=== PATIENT | male | born 1980 | race Caucasian/White ===

== ENCOUNTER 2019-07-02 07:02 | Day surgery (SDC) | payer OTHER ==
[2019-07-01 12:31] VITALS: BMI 31.4
[2019-07-02] MEDS ORDERED: DEXAMETHASONE SOD PHOSPHATE/PF 10 MG/ML SDV ONE (08:36)
[2019-07-02] MEDS ORDERED: ROPIVACAINE HCL 0.5% 30ML VIAL ONE (08:36)
[2019-07-02] MEDS ORDERED: MIDAZOLAM HCL 2 MG/2 ML SINGLE DOSE VIAL ONE ×2 (08:37)
[2019-07-02] MEDS ORDERED: PROPOFOL 20 ML ONE (08:46)
--- NOTE | 2019-07-02 09:26 | HP ---
Satellite [facility] - Chief Complaint Chief Complaint: right shoulder pain - Past Medical History Allergies/Adverse Reactions: Allergies Allergy/AdvReac Type Severity Reaction Status Date / Time No Known Drug Allergies Allergy Verified 07/02/19 07:31 - Current Medications Current Medications: Home Medications Medication Instructions Recorded Hydrocodone/Acetaminophen 1 each PO Q6H #30 tablet MDD 4 07/02/19 [Hydrocodone-Acetamin 5-325 mg] Satellite Physical Exam - Physical Examination Vital Signs: Vital Signs Period Temp Pulse Resp BP Sys/Kowalski Pulse Ox Last 24 Hr 98.0 F 74 16 135/77 99 General Appearance: Well Nourished, Well Developed, Alert & Oriented x3 ENT: Clear Lung: Normal air movement Extremities: Other (right shoulder- + ttp ,decr rom, + neer, + rogers, +/- empty can, nvi) Neurological: Intact, Alert, Oriented Satellite Impression/Plan - Impression/Plan Impression: right shoulder rct, impingement Operative Procedure: right shoulder arthroscopy with SAD and possible RCR Date to be Performed: 07/02/19
[2019-07-02] MEDS ORDERED: ceFAZolin SODIUM 1 GM VIAL ONE (09:56)
[2019-07-02] MEDS ORDERED: DEXAMETHASONE SOD PHOSPHATE 4 MG/1 ML VIAL ONE (09:56)
[2019-07-02] MEDS ORDERED: ONDANSETRON 4 MG/2 ML VIAL ONE (09:56)
[2019-07-02] MEDS ORDERED: ceFAZolin SODIUM 1 GM VIAL IVPB ONE (09:58)
[2019-07-02] MEDS ORDERED: oxyCODONE HCL 5 MG TABLET PO PRN (10:29)
[2019-07-02] MEDS ORDERED: ONDANSETRON 4 MG/2 ML VIAL IVPUSH PRN (10:29)
[2019-07-02] MEDS ORDERED: LACTATED RINGERS SOLUTION 1,000 ML IV SCH (10:30)
--- NOTE | 2019-07-02 10:46 | OP ---
<Pee Lutz - Last Filed: 07/02/19 10:44> Operative Note - Note: Operative Date: 07/02/19 ([facility]) Pre-Operative Diagnosis: right shoulder impingement, rct Operation: right shoulder arthroscopy with SAD, RANDELL Post-Operative Diagnosis: Same as Pre-op Surgeon: Yuri Mason [employer] Workers: Pee Lutz Anesthesiologist/DEBRANDER: Juana Still Anesthesia: General, Local Specimens Removed: shavings Estimated Blood Loss (mls): 5 <Yuri Mason - Last Filed: 07/02/19 11:18> Operative Note - Note: Operation: right shoulder arthroscopy, subacromial decompression, distal clavicle excision
--- NOTE | 2019-07-02 11:40 | OP ---
DATE OF OPERATION: 07/02/2019 PREOPERATIVE DIAGNOSIS: Right shoulder impingement syndrome and partial rotator cuff tear. POSTOPERATIVE DIAGNOSIS: Right shoulder impingement syndrome and partial rotator cuff tear. PROCEDURES PERFORMED: Right shoulder arthroscopy, subacromial decompression and distal clavicle excision. SURGEON: Priyank Moraes M.D. EVENT PROMOTIONS COORDINATOR: PAUL Valdivia ANESTHESIOLOGIST: Juana Still CRNA ANESTHESIA: Right interscalene block with LM anesthesia. DRAINS: None. COMPLICATIONS: None. SPECIMENS: Arthroscopic shavings. BLOOD LOSS: Minimal. BLOOD GIVEN: None. FLUID REPLACEMENT: PlasmaLyte 1000 mL. INDICATIONS: This patient is a 38-year-old male with the preoperative diagnosis of right shoulder pain, impingement syndrome, AC joint bursitis, and a partial rotator cuff tear. After understanding the potential risks, complications, alternatives and benefits of surgery versus nonsurgical treatment, the patient elected to undergo this procedure. DESCRIPTION PROCEDURE: The patient was brought to the operating room. A peripheral IV placed, and IV sedation given. He was given 2 g of IV Ancef 2 g. A right interscalene block was performed. He was placed into the beach-chair position with ample padding throughout, after LM anesthesia was induced. The right upper extremity was prepped and draped in a sterile fashion. The bony landmarks were marked out with a marking pen. A posterior portal was established. A diagnostic glenohumeral arthroscopy was performed. Inside the joint, things looked good. There was no glenohumeral osteoarthritis. The anterior labrum was a little frayed but not disattached and did not need to be repaired. The undersurface of the rotator cuff was pristine. The biceps tendon looked good. There was no synovitis. The area was copiously irrigated and washed out, and all saline removed. Next, our attention was turned to the subacromial space. A lateral portal was established with a spinal needle under direct visualization. A number 15 scalpel blade and a green cannula were introduced into the subacromial space. The patient had a tremendous amount of inflammatory bursitis. An extensive soft tissue bursectomy was done/extensive soft tissue debridement. This revealed the top surface of the rotator cuff, which looked good. There was no tear. The arm was put through a full range of motion. There were several points of significant impingement around the anterior-inferior bony acromial spur, but there was no tear. The patient had a huge subacromial spur and a very large distal clavicular spur as well. Both of these were taken down with a 5.5-mm oval bur, first in forward and then in reverse to fine-tune it, then with a straight shaver. The area was copiously irrigated and washed out. All excess saline and bony debris were removed. The arm was then put through a range of motion. Again, there was plenty of room. There were no points of impingement. There was no rotator cuff tear, and the AC joint and distal clavicle looked much better. The instrumentation was removed. All excess saline was removed. The arthroscopy portals were closed with 3-0 nylon sutures. The area was then washed and tried, covered with Aquacel dressing. He was put into a sling, extubated and brought to the recovery room. There were no complications during the case. The patient tolerated the procedure quite well. Total operative time was about 40 minutes. PRIYANK MORAES M.D. [id number]
[2019-07-02 13:03] VITALS: BP 133/63; PULSE 76; TEMP 97.7
--- NOTE | 2019-07-03 17:51 | PATH ---
Surgical Pathology Report Patient Name: MARGARITO FISCHER Med. Rec. #: [id number] /Age/Gender: 1980 (Age: 38) / M Account: [id number] Location: [facility] SURGICAL Taken: 07/02/2019 Received: 07/02/2019 Reported: 07/03/2019 Physicians: Yuri Mason M.D. Specimen(s) Received SHOULDER SHAVINGS, RIGHT Clinical History Right shoulder tear Final Diagnosis SHOULDER SHAVINGS, RIGHT, ARTHROSCOPY: FRAGMENTS OF BENIGN CARTILAGE, BONE, DENSE FIBROCONNECTIVE TISSUE, ADIPOSE TISSUE, AND SKELETAL MUSCLE. Electronically Signed Bernadette Levin M.D. Gross Description Received in formalin, labeled "right shoulder shavings," is a 4.3 x 3.5 x 0.6 cm. aggregate of loredo-yellow soft tissue fragments. A commissary representative portion is submitted in one cassette. /07/02/2019 [facility]07/02/2019
== END 2019-07-02 13:15 | disposition home or self-care (01) ==
LOC: JASU-SURG 07:02
PROVIDERS: ATTEND Orthopaedic Surgery
PROC: 0RNJ4ZZ Release Right Shoulder Joint, Percutaneous Endoscopic Approach (ICD-10-PCS; principal; 2019-07-02 09:00)
DX: M75.41 Impingement syndrome of right shoulder (principal); M75.101 Unspecified rotator cuff tear or rupture of right shoulder, not specified as traumatic
CPT/HCPCS: 94760

== ENCOUNTER 2019-12-01 07:10 | Day surgery (SDC) | payer OTHER ==
[2019-11-27 16:09] VITALS: BMI 31.4
--- NOTE | 2019-11-28 11:53 | HP ---
Satellite [facility] - Chief Complaint Chief Complaint: right shoulder pain - Past Medical History Allergies/Adverse Reactions: Allergies Allergy/AdvReac Type Severity Reaction Status Date / Time No Known Drug Allergies Allergy Verified 11/27/19 16:09 - Current Medications Current Medications: Home Medications Medication Instructions Recorded NK [No Known Home Medication] 11/27/19 [facility] Physical Exam - Physical Examination General Appearance: Well Nourished, Well Developed, Alert & Oriented x3 ENT: Clear Lung: Normal air movement Extremities: Other (right shoulder- + ttp, decr rom, + neer, + rogers, + empty can, nvi) Neurological: Intact, Alert, Oriented Satellite Impression/Plan - Impression/Plan Impression: right shoulder rct Operative Procedure: right shoulder arthroscopy with RUBEN RCR Date to be Performed: 12/01/19
[2019-12-01] MEDS ORDERED: ROPIVACAINE HCL 0.5% 30ML VIAL ONE (07:58)
[2019-12-01] MEDS ORDERED: MIDAZOLAM HCL 2 MG/2 ML SINGLE DOSE VIAL ONE ×2 (07:59)
[2019-12-01] MEDS ORDERED: PROPOFOL 20 ML ONE ×2 (07:59→09:08)
[2019-12-01] MEDS ORDERED: ROCURONIUM BROMIDE 50 MG/5 ML SYRINGE ONE (08:00)
[2019-12-01] MEDS ORDERED: SUCCINYLCHOLINE CHLORIDE 200 MG/10 ML SYRINGE ONE (08:00)
[2019-12-01 08:24] LABS: EPI CELLS 3 /uL (0-25.1); HYALINE CASTS 2 /uL (0-3.1); PH,URINE 5.5 (5.0-8.0); URINE APPEARANCE CLEAR; URINE BACTERIA 7 /uL (0-1359); URINE BILIRUBIN NEGATIVE (NEGATIVE); URINE COLOR YELLOW; URINE GLUCOSE (UA) NEGATIVE (NEGATIVE); URINE KETONE NEGATIVE (NEGATIVE); URINE LEUK ESTERASE NEGATIVE (NEGATIVE); URINE NITRITE NEGATIVE (NEGATIVE); URINE PROTEIN NEGATIVE (NEGATIVE); URINE RBC 10 /uL (0-23.9); URINE UROBILINOGEN 0.2 mg/dL (0.2-1.0); URINE WBC 4 /uL (0-25.8)
[2019-12-01] MEDS ORDERED: ceFAZolin SODIUM 1 GM VIAL IVPB ONE (08:46)
[2019-12-01] MEDS ORDERED: LIDOCAINE HCL/PF 2% SDV 5ML VIAL ONE (09:09)
[2019-12-01] MEDS ORDERED: KETOROLAC TROMETHAMINE 30 MG/1 ML VIAL ONE (09:09)
[2019-12-01] MEDS ORDERED: ceFAZolin SODIUM 1 GM VIAL ONE (09:09)
[2019-12-01] MEDS ORDERED: DEXAMETHASONE SOD PHOSPHATE 4 MG/1 ML VIAL ONE (09:09)
--- NOTE | 2019-12-01 09:30 | OP ---
Operative Note - Note: Operative Date: 12/01/19 Pre-Operative Diagnosis: right shoulder pain, ACJ OA Operation: right shoulder arthroscopy, AC joint resection Post-Operative Diagnosis: Same as Pre-op Surgeon: Yuri Mason Tutor Coordinator: Pee Lutz Anesthesiologist/DATA POWER CONSULTANT: Malorie Ta MD Anesthesia: General, Local Specimens Removed: shavings Estimated Blood Loss (mls): 10 Drains, Volume Out (mls): 0 Blood Volume Replaced (mls): 0 Fluid Volume Replaced (mls): 700 Operative Report Dictated: Yes
[2019-12-01] MEDS ORDERED: PROMETHAZINE HCL 25 MG/1 ML VIAL IVPUSH PRN (10:05)
[2019-12-01] MEDS ORDERED: oxyCODONE HCL 5 MG TABLET PO PRN (10:05)
[2019-12-01] MEDS ORDERED: ONDANSETRON 4 MG/2 ML VIAL IVPUSH PRN (10:05)
[2019-12-01] MEDS ORDERED: LACTATED RINGERS SOLUTION 1,000 ML IV SCH (10:15)
[2019-12-01 10:54] VITALS: TEMP 98.1
[2019-12-01 11:49] VITALS: BP 120/70; PULSE 70
--- NOTE | 2019-12-02 12:57 | PATH ---
Surgical Pathology Report Patient Name: MARGARITO FISCHER Med. Rec. #: [id number] /Age/Gender: 1980 (Age: 39) / M Account: [id number] Location: [facility] SURGICAL Taken: 12/01/2019 Received: 12/01/2019 Reported: 12/02/2019 Physicians: Yuri Mason M.D. Specimen(s) Received RIGHT SHOULDER SHAVINGS Clinical History Right shoulder impingement and AC joint arthritis Final Diagnosis SHOULDER, RIGHT, ARTHROSCOPIC SHAVINGS: FIBROSYNOVIAL TISSUE, BONE, CARTILAGE AND SKELETAL MUSCLE. Electronically Signed Hedy Kuo M.D. Gross Description Received in formalin, labeled "right shoulder shavings," is a 3.0 x 2.8 x 0.3 cm. aggregate of loredo-yellow soft tissue fragments. A open claims representative portion is submitted in one cassette. /12/01/2019 [facility]/12/01/2019
--- NOTE | 2019-12-02 16:15 | OP ---
DATE OF OPERATION: 12/01/2019 PREOPERATIVE DIAGNOSIS: Right shoulder recurrent pain, possible rotator cuff tear, possible acromioclavicular joint arthritis. PROCEDURE: Right shoulder arthroscopy and arthroscopic acromioclavicular joint resection. SURGEON: Yuri Mason MD EGG GATHERER: APUL Valdivia. ANESTHESIOLOGIST: Malorie Ta MD ANESTHESIA: Right interscalene block and LMA anesthesia. DRAINS: None. COMPLICATIONS: None. BLOOD LOSS: 15 mL. BLOOD GIVEN: None. FLUID REPLACEMENT: 700 mL of Plasmalyte. SPECIMENS: Arthroscopic shavings. DESCRIPTION OF PROCEDURE: Patient is a 39-year-old male with a preoperative diagnosis of recurrent pain in the right shoulder. He is status post right shoulder surgery. A recent preoperative MRI did suggest possible rotator cuff tear. After understanding the potential risks, complications, alternatives and benefits of surgery versus nonsurgical treatment, the patient elected to undergo this procedure. The patient was brought to the operating room, peripheral IV placed, IV sedation given. A right interscalene block was performed. The LMA anesthesia was induced. He was placed into the beach chair position with the elbow padded throughout. First, I put the right upper extremity and shoulder through manipulation under anesthesia. There was absolutely no block to motion. He had full, easy, fluid passive motion with no points of stiffness. The right upper extremity was prepped and draped in the sterile fashion. The bony landmarks were marked out with a marking pen. A posterior portal was established through the exact same location as the previous portal and diagnostic glenohumeral arthroscopy was performed. The glenohumeral joint looked pristine. The glenoid, humeral head, labrum, the biceps tendon, biceps anchor, and the entire undersurface of the rotator cuff looked perfect. There was no arthritis. No tears. No synovitis. No reactive inflammation. It all looked perfect. The gutters looked good. There were no loose bodies. The area was copiously irrigated and washed out. All instrumentation and excess saline were removed. Next, our attention was turned to the subacromial space. Lateral portal was established using the spinal needle. Again, using the exact same location as the previous portal, indicating the previous portal was in the correct location, a number 15-scalpel blade was used to open it a bit and a green cannula introduced into the subacromial space. Here, also everything looked pristine. The top surface of the rotator cuff looked perfect. The arm was put through a full range of motion and there were no tears, synovitis. A normal bursa was reformed. The undersurface of the acromion also looked perfect. It was smooth. Soft tissue had formed. There were no bone spurs. Just to make sure, a soft tissue bursectomy/debridement was done with the ArthroCare wand, revealing that the previous subacromial decompression looked good. There were no missed bone spurs. There were no irregularities in the undersurface of the acromion or the distal clavicle. The area was gently shaved to remove any soft tissue debris with the straight shaver. Photographs were taken. Overall I was quite happy with the way this previous subacromial decompression looked. The arm was put through full range of motion. The rotator cuff was directly visualized in all planes. There were no points of compression whatsoever. There were not even any points of synovitis or reactive inflammation. It all looked completely normal. Next, the AC joint was addressed. The distal clavicle looked good. The anterior portal was established with a spinal needle and then a number 11-scalpel blade. First the metal trocar was placed into the new anterior portal, documenting excellent angle up into the AC joints. Next, I cleared the soft tissue with an ArthroCare wand. It went easily. There were really no points of compression here either. That being said, first I used a shaver to remove the soft tissue debris to the width of the shaver within the AC joint and then used the 5.5-mm oval bur to do an AC joint resection. There were no points of compression or renal osteophytes that I could see. It did take away a small amount of bone, opening the AC joint to 5.5 mm. I then cleared it out with a shaver, cauterized with the ArthroCare wand, directly visualized the AC joint through full arm range of motion. There were no points of compression. The area was copiously irrigated and washed out, explored again. Nothing was seen. The instrumentation was removed. Excess saline was removed. The arthroscopy portal was closed with 3-0 nylon sutures. The area was then washed and dried, covered the incisions with Aquacel dressings and was put into a sling. He was extubated. Total operative time was 30 minutes. There were no complications during the case. The patient was brought to the ambulatory recovery room in stable condition. Arjun [id number]
== END 2019-12-01 11:45 | disposition home or self-care (01) ==
LOC: JASU-SURG 07:10
PROVIDERS: ATTEND Orthopaedic Surgery
PROC: 0PB94ZZ Excision of Right Clavicle, Percutaneous Endoscopic Approach (ICD-10-PCS; principal; 2019-12-01 09:00)
DX: M25.511 Pain in right shoulder (principal)
CPT/HCPCS: 81003; 88304-TC; 94760

== ENCOUNTER 2021-06-22 04:07 | Day surgery (SDC) | payer OTHER ==
[2021-06-17 14:33] VITALS: BMI 34.4
[2021-06-22] MEDS ORDERED: PROPOFOL 20 ML ONE (07:20)
[2021-06-22] MEDS ORDERED: DEXAMETHASONE SOD PHOSPHATE 10 MG/1 ML VIAL ONE (07:58)
[2021-06-22] MEDS ORDERED: BUPIVACAINE HCL/PF 0.5% (5MG/ML) 10 ML VIAL ONE (07:58)
[2021-06-22] MEDS ORDERED: MIDAZOLAM HCL 2 MG/2 ML SINGLE DOSE VIAL ONE ×2 (08:00)
[2021-06-22] MEDS ORDERED: ceFAZolin SODIUM 1 GM VIAL IVPB ONE (08:18)
[2021-06-22] MEDS ORDERED: ceFAZolin SODIUM 1 GM VIAL ONE (08:27)
[2021-06-22] MEDS ORDERED: KETOROLAC TROMETHAMINE 30 MG/1 ML VIAL ONE (09:25)
[2021-06-22] MEDS ORDERED: oxyCODONE HCL 5 MG TABLET PO PRN (10:03)
[2021-06-22] MEDS ORDERED: ONDANSETRON 4 MG/2 ML VIAL IVPUSH PRN (10:03)
[2021-06-22] MEDS ORDERED: LACTATED RINGERS SOLUTION 1,000 ML IV SCH (10:15)
[2021-06-22 11:07] VITALS: TEMP 97.8
[2021-06-22 14:19] VITALS: BP 130/77; PULSE 62
== END 2021-06-22 11:35 | disposition home or self-care (01) ==
LOC: JASU-SURG 04:07
PROVIDERS: ATTEND Orthopaedic Surgery
PROC: 0PBB4ZZ Excision of Left Clavicle, Percutaneous Endoscopic Approach (ICD-10-PCS; 2021-06-22)
PROC: 0LS44ZZ Reposition Left Upper Arm Tendon, Percutaneous Endoscopic Approach (ICD-10-PCS; 2021-06-22)
PROC: 0RNK4ZZ Release Left Shoulder Joint, Percutaneous Endoscopic Approach (ICD-10-PCS; principal; 2021-06-22 08:00)
DX: M75.42 Impingement syndrome of left shoulder (principal); M75.112 Incomplete rotator cuff tear or rupture of left shoulder, not specified as traumatic; M75.22 Bicipital tendinitis, left shoulder
CPT/HCPCS: 94760; J1100